=== PATIENT | male | born 1960 | race Caucasian/White ===

== ENCOUNTER 2024-03-29 07:51 | Day surgery (SDC) | payer BC ==
[~2024-03-29] VITALS: Ht 186.7 cm; Wt 83.7 kg
[~2024-03-29 07:51] MED LIST: CHROMIUM PICOLI1 TA8 PO; CINNAMON500 MG PO; GLUCOPHAGE500 MG/TAB PO; JANUVIA 100MG100 MG PO; LR 1,000 ML IV SCH; NATURE'S BLEND600 M2 PO; ONE-A-DAY ESSE1 EACH PO; Ondansetron 4 MG/2 ML VIAL IV PRN; PRINIVIL5 MG PO; PROBIOTIC FORMU1 CAP PO; VITAMIN C500 MG PO; ZOCOR 40MG40 MG PO
[2024-03-29 08:09] VITALS: BP 128/74; PULSE 52; TEMP 97.8
--- NOTE | 2024-03-29 08:35 | NUR ---
The patient ambulated back to [facility] independently using a steady gait and appeared to tolerate the activity well. Vital signs obtained. Consent signed. 20G IV started in right wrist with one stick, LR infusing without difficulty. Assessment completed. Home medications reconcilled. , [place], at bedside. Warm blanket provided. The patient's states that he "needs a dose of anti-nausea medication" before the procedure. The patient agrees with her and was given a PRN dose of Zofran 4 mg. The patient's blood sugar was checked with a result of 109. The patient denies any further needs at this time.
[2024-03-29] MEDS ORDERED: Lidocaine PF 2% (20 MG/ML) 5 ML VIAL ONE (10:26)
[2024-03-29 10:55] VITALS: BP 102/68; PULSE 58
[2024-03-29 11:10] VITALS: BP 115/72; PULSE 60
--- NOTE | 2024-03-29 14:36 | NUR ---
1055- PT BACK TO [facility] FROM [facility]. ASSISTED TO RECLINER. SPOUSE AT BEDSIDE. MONITORS IN PLACE AND VS OBTAINED. PT SNACKING ON OWN FOOD. 1105- REMOVED IV PER ORDERS. 1110- PROVIDER IN TO TALK WITH PT AND SPOUSE. NO COMPLAINTS OF NAUSEA OR PAIN. 1118- DISCUSSED DISCHARGE INSTRUCTIONS WITH PT AND SPOUSE. ANSWERED ALL QUESTIONS. 1120- PT DISCHARGED FROM FACILITY VIA WHEELCHAIR TO PRIVATE VEHICLE DRIVEN BY SPOUSE.
== END 2024-03-29 11:20 | disposition home or self-care (01) ==
LOC: SDCO 07:51
DX: Z12.11 Encounter for screening for malignant neoplasm of colon (principal); Z86.010 Personal history of colon polyps; K57.30 Diverticulosis of large intestine without perforation or abscess without bleeding
CPT/HCPCS: J2405; J2704; J7120